=== PATIENT | female | born 1960 | race Caucasian/White ===

== ENCOUNTER 2016-07-01 18:04 | Emergency (ER) | payer OTHER ==
[2016-07-01 18:09] VITALS: BP 149/87
[2016-07-01] MEDS ORDERED: TETANUS/DIPHTHERIA/PERTUSSIS 0.5 ML SYRINGE IM ONE ×2 (18:13→18:36)
[2016-07-01] MEDS ORDERED: LIDOCAINE 1% 2 ML VIAL ONE (18:17)
[2016-07-01] MEDS ORDERED: LIDOCAINE 1% 50 ML MDV SUBQ STA (18:19)
--- NOTE | 2016-07-01 18:21 | ED Physician Documentation ---
PD HPI UPPER EXT INJURY - Stated complaint Stated Complaint: RIGHT FINGERS LAC - Chief complaint Chief Complaint: Ext Problem - History obtained from History obtained from: Patient - History of Present Illness Location: Right, Finger (3rd and 4th) Where injury occurred: Home Timing - onset: How many hours ago (1) Timing - duration: Hours (1) Timing - details: Abrupt onset Pain level max: 5 Pain level now: 5 Improved by: Rest Worsened by: Moving, Palpating Associated symptoms: No: Weakness, Numbness, Tingling, Swelling, Discolored Contributing factors: No: Anticoagulated Similar symptoms before: Has not had sx before - Additonal information Additional information: pt is right handed, cut hand on circular saw Review of Systems : denies: Dysuria Neurologic: denies: Focal weakness, Numbness PD PAST MEDICAL HISTORY - Past Medical History Past Medical History: Yes Endocrine/Autoimmune: HyPOthyroidism Other Past Medical History: hypothyroid, diverticulosis - Past Surgical History Past Surgical History: Yes General: Cholecystectomy HEENT: Tonsil/Adenoidectomy - Present Medications Home Medications: Ambulatory Orders Medication Instructions Recorded Confirmed Levothyroxine [Synthroid] 75 mcg PO QDAC 04/04/15 07/01/16 - Allergies Allergies/Adverse Reactions: Allergies Allergy/AdvReac Type Severity Reaction Status Date / Time No Known Drug Allergies Allergy Verified 07/01/16 18:21 - Social History Does the pt smoke?: No Smoking Status: Never smoker Does the pt drink ETOH?: No Does the pt have substance abuse?: No - Immunizations Immunizations are current?: No Immunizations: TDAP >10years/unknown PD ED PE NORMAL - Vitals Vital signs reviewed: Yes - General General: Alert and oriented X 3, No acute distress - Derm Derm: Warm and dry - Neuro Neuro: Alert and oriented X 3 - Psych Psych: Normal mood, Normal affect PD ED PE EXPANDED - Extremities SAMY UE/Hands Visual: 1 - laceration (1cm, NVI. linear, jagged edges) 2 - abrasion Results - Vitals Vitals: Vital Signs - 24 hr 07/01/16 18:06 Temperature 36.4 C L Heart Rate 71 Respiratory 16 Rate Blood Pressure 149/87 H O2 Saturation 99 Oxygen O2 Source Room air - Rads (name of study) R hand xray Radiology: Prelim report reviewed, EMP read contemporaneously, See rad report ( no fracture. Normal alignment) Procedures - Laceration (location) R 3rd digit Length in cm: 1.5 Wound type: Linear, Stellate, Into subcut fat, Contaminated Neurovascular status: Sensory intact, Motor intact, Vascular intact Tendon involvement: Tendon intact Anesthesia: Lidocaine 1% Wound Preparation: Irrigated copiously NS Skin layer closure: Nylon, Interrupted, Size #-0 - enter number (4), Sutures - enter # (3) Other: Patient tolerated well, No complications, Neurovascular intact, Dressing applied, Tetanus booster given (tdap) Complexity: Simple PD MEDICAL DECISION MAKING - ED course Complexity details: re-evaluated patient, considered differential, d/w patient ED course: Patient is a 55-year-old female who presents to the emergency department laceration to the right third digit and an abrasion to the right fourth digit. Laceration repaired. Tolerated well. No acute findings on x-ray. No evidence of bony injury. Warnings of infection and instructions on wound care given at bedside. Also counseled on how to minimize scarring. Patient counseled regarding signs and symptoms for which I believe and urgent re-evaluation would be necessary. Patient with good understanding of and agreement to plan and is comfortable going home at this time This document was made in part using voice recognition software. While efforts are made to proofread this document, sound alike and grammatical errors may occur. Departure - Departure Disposition: 01 Home, Self Care Clinical Impression: Finger laceration Qualifiers: Encounter type: initial encounter Qualified Code(s): S61.219A - Laceration without foreign body of unspecified finger without damage to nail, initial encounter Condition: Good Instructions: ED Laceration Hand Follow-Up: Anaya Roman MD [Primary Care Provider] - Within 1 week Comments: Return if you worsen. The stitches should be removed in 10-14 days. Discharge Date/Time: 07/01/16 19:21
[2016-07-01] MEDS ORDERED: LIDOCAINE 2% 10 ML MDV ONE (18:51)
--- NOTE | 2016-07-01 18:51 | XRAY Preliminary Report ---
Exam: XR Hand 3 View RT IMPRESSION: 1. No fracture. 2. Normal alignment. [facility] SITE ID: [id number]
--- NOTE | 2016-07-01 20:52 | XRAY Report ---
EXAM: RIGHT HAND RADIOGRAPHY EXAM DATE: 07/01/2016 06:34 p.m. CLINICAL HISTORY: Right 3rd and 4th digit lacerations. COMPARISON: None. TECHNIQUE: 3 views. FINDINGS: Bones: Normal. No fractures or bone lesions. Joints: Normal. No subluxations. Soft Tissues: Lacerations are not well seen in the right third and fourth finger. No radiopaque forei gn bodies. IMPRESSION: 1. No fracture. 2. Normal alignment. [facility] Referring Provider Line: [phone] SITE ID: [id number]
== END 2016-07-01 19:21 | disposition home or self-care (01) ==
LOC: ED 18:04
DX: S61.212A Laceration without foreign body of right middle finger without damage to nail, initial encounter (principal); S61.214A Laceration without foreign body of right ring finger without damage to nail, initial encounter; W31.2XXA Contact with powered woodworking and forming machines, initial encounter; Y92.019 Unspecified place in single-family (private) house as the place of occurrence of the external cause; E03.9 Hypothyroidism, unspecified; Z23 Encounter for immunization
CPT/HCPCS: 12001; 90471; 99283

== ENCOUNTER 2017-08-17 20:28 | Emergency (ER) | payer OTHER ==
[2017-08-17 20:37] VITALS: BP 173/91
--- NOTE | 2017-08-17 20:52 | ED Physician Documentation ---
History of Present Illness - Stated complaint Stated Complaint: BILAT FEET SWELLING/BUGBITES - Chief complaint Chief Complaint: General - History obtained from History obtained from: Patient - History of Present Illness Timing: How many days ago (9 days ago) Improved by: no ameliorating factors Worsened by: no exacerbating factors - Additonal information Additional information: c/o BLE swelling and itching due to multiple mosquito stings since 08/08 Review of Systems Constitutional: reports: Reviewed and negative Skin: reports: Bite / sting (BLE) Musculoskeletal: reports: Extremity swelling PD PAST MEDICAL HISTORY - Past Medical History Past Medical History: Yes Endocrine/Autoimmune: HyPOthyroidism - Past Surgical History Past Surgical History: Yes General: Cholecystectomy HEENT: Tonsil/Adenoidectomy - Present Medications Home Medications: Ambulatory Orders Medication Instructions Recorded Confirmed Levothyroxine [Synthroid] 75 mcg PO QDAC 04/04/15 07/01/16 predniSONE [Prednisone] 40 mg PO DAILY 4 Days #8 tablet 08/17/17 - Allergies Allergies/Adverse Reactions: Allergies Allergy/AdvReac Type Severity Reaction Status Date / Time No Known Drug Allergies Allergy Verified 08/17/17 20:37 - Social History Does the pt smoke?: No Smoking Status: Never smoker Does the pt drink ETOH?: No Does the pt have substance abuse?: No - Immunizations Immunizations are current?: No Immunizations: TDAP >10years/unknown PD ED PE NORMAL - Vitals Vital signs reviewed: Yes - General General: Alert and oriented X 3, No acute distress, Well developed/nourished PD ED PE EXPANDED - Derm Derm: Other (multiple BLE circular erythematous patches with sharp margins and no confluence, distal legs with sparing of feet) - Extremities Extremities: Pedal edema bilateral (mild bilateral) Results - Vitals Vitals: Oxygen O2 Source Room air PD MEDICAL DECISION MAKING - ED course Complexity details: considered differential, d/w patient - Sepsis Event Vital Signs: Oxygen O2 Source Room air Departure - Departure Disposition: 01 Home, Self Care Clinical Impression: Insect bites Condition: Good Instructions: ED Bite Mosquito Follow-Up: VEENA HERNANDEZ PA-C [Primary Care Provider] - (3-5 days if symptoms persist) Prescriptions: predniSONE [Prednisone] 40 mg PO DAILY 4 Days #8 tablet Comments: In addition to the steroid (prednisone), I recommend that you take claritin once per day for the next 5 days Discharge Date/Time: 08/17/17 21:11
[2017-08-17] MEDS ORDERED: predniSONE 20 MG TABLET PO STA (21:04)
== END 2017-08-17 21:11 | disposition home or self-care (01) ==
LOC: ED 20:28
DX: S80.862A Insect bite (nonvenomous), left lower leg, initial encounter (principal); S80.861A Insect bite (nonvenomous), right lower leg, initial encounter; W57.XXXA Bitten or stung by nonvenomous insect and other nonvenomous arthropods, initial encounter
CPT/HCPCS: 99283; J7512

== ENCOUNTER 2017-11-03 23:24 | Emergency (ER) | payer OTHER ==
--- NOTE | 2017-11-04 00:15 | XRAY Report ---
Reason: injury, pain Procedure Date: 11/04/2017 Accession Number: [id number] / [id number] Procedure: XR - Wrist 4 View RT CPT Code: FULL RESULT: EXAM: RIGHT WRIST RADIOGRAPHY EXAM DATE: 11/04/2017 12:08 AM. CLINICAL HISTORY: Injury, right wrist pain. COMPARISON: HAND 3 VIEW RT 07/01/2016 6:28 PM. TECHNIQUE: 3 views. FINDINGS: Bones: Normal. No fractures or bone lesions. Joints: Normal. No subluxations. Soft Tissues: Dorsal soft tissue swelling. IMPRESSION: No right wrist fracture or malalignment seen. [facility]
--- NOTE | 2017-11-04 01:10 | ED Physician Documentation ---
PD HPI UPPER EXT INJURY - Stated complaint Stated Complaint: R WRIST INJ - Chief complaint Chief Complaint: Trauma Ext - History obtained from History obtained from: Patient - History of Present Illness Location: Right, Wrist Type of injury: Fall Timing - onset: Enter time (16:30), Yesterday (11/02/17) Timing - duration: Hours Timing - details: Abrupt onset Pain level now: 8 Improved by: Rest Worsened by: Moving Associated symptoms: No: Weakness, Numbness, Tingling, Swelling Similar symptoms before: Has not had sx before - Additonal information Additional information: tripped and FOSH 4:30 PM, c/o right wrist pain. She is right-hand dominant. Taking ibuprofen with adequate relief. Presents at this time due to steadily wo rsening pain. Review of Systems Musculoskeletal: reports: Joint pain. denies: Neck pain, Back pain, Joint swelling Neurologic: denies: Focal weakness, Numbness PD PAST MEDICAL HISTORY - Past Medical History Endocrine/Autoimmune: HyPOthyroidism - Past Surgical History Past Surgical History: Yes General: Cholecystectomy HEENT: Tonsil/Adenoidectomy - Present Medications Home Medications: Ambulatory Orders Medication Instructions Recorded Confirmed Levothyroxine [Synthroid] 75 mcg PO QDAC 04/04/15 07/01/16 - Allergies Allergies/Adverse Reactions: Allergies Allergy/AdvReac Type Severity Reaction Status Date / Time No Known Drug Allergies Allergy Verified 11/03/17 23:36 - Social History Does the pt smoke?: No Smoking Status: Never smoker Does the pt drink ETOH?: No Does the pt have substance abuse?: No - Immunizations Immunizations are current?: Yes Immunizations: TDAP >10years/unknown - POLST Patient has POLST: No PD ED PE NORMAL - Vitals Vital signs reviewed: Yes - General General: Alert and oriented X 3, No acute distress, Well developed/nourished - Derm Derm: Normal color, Warm and dry - Extremities Extremities: No deformity, No edema - Neuro Neuro: No motor deficit, No sensory deficit PD ED PE EXPANDED - Extremities Extremities: Tenderness (right distal radius. no "snuff box" tenderness), Other (ROM intact in right wrist, but increased pain with radial deviation) Results - Vitals Vitals: Vital Signs - 24 hr 11/03/17 11/04/17 23:32 01:25 Temperature 36.9 C 36.4 C L Heart Rate 85 90 Respiratory 18 16 Rate Blood Pressure 145/83 H 131/92 H O2 Saturation 99 100 Oxygen O2 Source Room air - Rads (name of study) right wrist xrays Radiology: Prelim report reviewed, See rad report PD MEDICAL DECISION MAKING - ED course Complexity details: reviewed results, re-evaluated patient, considered differential, d/w patient ED course: Patient has wrist splint from previous injury and will use that as needed for comfort - Sepsis Event Vital Signs: Vital Signs - 24 hr 11/03/17 11/04/17 23:32 01:25 Temperature 36.9 C 36.4 C L Heart Rate 85 90 Respiratory 18 16 Rate Blood Pressure 145/83 H 131/92 H O2 Saturation 99 100 Oxygen O2 Source Room air Departure - Departure Disposition: 01 Home, Self Care Clinical Impression: Right wrist sprain Qualifiers: Encounter type: initial encounter Qualified Code(s): S63.501A - Unspecified sprain of right wrist, initial encounter Condition: Good Instructions: ED Sprain Wrist Follow-Up: VEENA HERNANDEZ PA-C [Primary Care Provider] - Discharge Date/Time: 11/04/17 01:25
[2017-11-04 01:44] VITALS: BP 131/92
== END 2017-11-04 01:25 | disposition home or self-care (01) ==
LOC: ED 23:24
DX: S63.501A Unspecified sprain of right wrist, initial encounter (principal); W19.XXXA Unspecified fall, initial encounter
CPT/HCPCS: 99282; 99283